=== PATIENT | female | born 1975 | race Caucasian/White ===

== ENCOUNTER 2017-04-17 16:56 | Emergency (ER) | payer OTHER ==
[2017-04-17 17:07] VITALS: BP 112/69; PULSE 78; TEMP 97.9; BMI 32.1
[2017-04-17] MEDS ORDERED: IBUPROFEN 600 MG TABLET (FP) PO ONE ×2 (17:35→17:36)
--- NOTE | 2017-04-17 17:43 | PDOC ---
History of Present Illness - General Chief Complaint: Eye Problem Stated Complaint: EYE PROBLEM Time Seen by Provider: 04/17/17 17:26 History Source: Patient Exam Limitations: No Limitations - History of Present Illness Initial Comments: 04/17/17 18:12 Patient states Thursday had an interruption and drainage of a stye to her left upper lid. States was painful, swollen in the morning and with 1 hot soak caused to open and draining thick purulent drainage. States swelling and tenderness resolved by Thursday. States yesterday had recurrent onset of same type of pain and this morning woke up with more swelling, worsened pain then previous and another noted small abscess to the left lateral aspect of her lid. Denies fever, denies trauma, denies any visual changes. Return erythromyosin ointment but has not formed any other treatments for resolution. Timing/Duration: unsure Severity: mild, moderate Associated Symptoms: reports: malaise. denies: fever/chills Past History - Travel Traveled outside of the country in the last 30 days: No Close contact w/someone who was outside of country & ill: No - Past Medical History Allergies/Adverse Reactions: Allergies Allergy/AdvReac Type Severity Reaction Status Date / Time No Known Allergies Allergy Verified 04/17/17 17:00 Home Medications: Ambulatory Orders Amox-Tr/K Cl [Augmentin 875Mg Tablet] 1 tab PO BID #14 tablet 04/17/17 Asthma: Yes - Immunization History Immunization Up to Date: Yes - Psycho/Social/Smoking Cessation Hx Anxiety: No Suicidal Ideation: No Smoking History: Never smoked Hx Alcohol Use: No Drug/Substance Use Hx: No Substance Use Type: None Review of Systems - Review of Systems Able to Perform ROS?: Yes Is the patient limited Lao proficient: Yes Constitutional: Yes: Symptoms Reported, See HPI, Malaise. No: Fever HEENTM: Yes: Symptoms Reported, See HPI, Eye Pain, Tearing. No: Blurred Vision , Nose Congestion, Mouth Swelling Respiratory: No: Symptoms reported Integumentary: Yes: Symptoms Reported, See HPI, Erythema, Lesions All Other Systems: Reviewed and Negative *Physical Exam - Vital Signs Last Vital Signs Temp Pulse Resp BP Pulse Ox 97.9 F 78 18 112/69 99 04/17/17 17:00 04/17/17 17:00 04/17/17 17:00 04/17/17 17:00 04/17/17 17:00 - Physical Exam General Appearance: Yes: Appropriately Dressed, Apparent Distress HEENT: positive: LIGIA (no or drainage, no evidence of conjunctivitis.), Normal ENT Inspection, TMs Normal, Pharynx Normal, Other (has erythema swelling and tenderness to the lateral left upper lid with a small abscess draining purulent drainage. Tenderness is periorbital) Respiratory/Chest: positive: Lungs Clear, Normal Breath Sounds Cardiovascular: positive: Regular Rate Gastrointestinal/Abdominal: positive: Soft Extremity: positive: Normal Capillary Refill Neurologic: positive: cash analyst II-XII NML intact, Fully Oriented, Alert, Normal Mood/ Affect, Normal Response, Motor Strength 01/16 Medical Decision Making - Medical Decision Making 04/17/17 18:16 Left thigh, we'll continue treating with conservative measures given a watch and wait prescription for Augmentin if facial cellulitis occurs or fevers. *DC/Admit/Observation/Transfer Diagnosis at time of Disposition: Hordeolum externum (stye) Qualifiers: Laterality: left Eyelid: upper Qualified Code(s): H00.014 - Hordeolum externum left upper eyelid - Discharge Dispostion Disposition: HOME Condition at time of disposition: Stable Admit: No - Prescriptions Prescriptions: Amox-Tr/K Cl [Augmentin 875Mg Tablet] 1 tab PO BID #14 tablet - Referrals Referrals: Jl Sigala [Primary Care Provider] - - Patient Instructions Printed Discharge Instructions: DI for Blepharitis Additional Instructions: Rest, avoid rubbing eyes Hot wet towels/soaks to I as often as possible until stye comes to ahead and starts to drain Wash hands frequently Wash hands, may use eye ointment, erythromycin for lubricant 3 times a day as needed Followup with ophthalmology or private physician as needed If swelling worsens, face becomes swollen, developed fevers, start antibiotic and follow-up with physician/manager wholesale within 24 hours, otherwise continue conservative treatment for hopeful resolution without antibiotic use - Post Discharge Activity Work/School Note: Back to Work
== END 2017-04-17 17:46 | disposition home or self-care (01) ==
LOC: JER 16:56
DX: H00.014 Hordeolum externum left upper eyelid (principal)
CPT/HCPCS: 99281-25

== ENCOUNTER 2018-06-14 18:13 | Emergency (ER) | payer OTHER ==
[2018-06-14 18:33] VITALS: BP 121/77; PULSE 77; TEMP 98.6; BMI 28.3
--- NOTE | 2018-06-14 18:33 | PDOC ---
Rapid Medical Evaluation Chief Complaint: Back Pain Time Seen by Provider: 06/14/18 18:30 Medical Evaluation: Allergies Allergy/AdvReac Type Severity Reaction Status Date / Time No Known Allergies Allergy Verified 06/14/18 18:29 I have performed a brief in-person evaluation of this patient. The patient presents with a chief complaint of: back pain x 3 days. took 1 diclofenac on the first day with little relief Pertinent physical exam findings: low back pain radiating to legs I have ordered the following: hcg The patient will proceed to the ED for further evaluation Discharge Disposition - Diagnosis Low back pain - Referrals Referrals: Micheal Alejo [Primary Care Provider] - - Patient Instructions - Post Discharge Activity
--- NOTE | 2018-06-14 18:58 | PDOC ---
History of Present Illness - General Chief Complaint: Back Pain Stated Complaint: LOW BACK PAIN Time Seen by Provider: 06/14/18 18:30 - History of Present Illness Initial Comments: 06/14/18 18:55 42-year-old female without comorbidities presents for evaluation of atraumatic onset of lower back pain 2 days. She describes her pain is achy exacerbated with activity relieved with rest and with radiation to bilateral buttocks. No loss of bowel bladder function or saddle paresthesias Past History - Past Medical History Allergies/Adverse Reactions: Allergies Allergy/AdvReac Type Severity Reaction Status Date / Time No Known Allergies Allergy Verified 06/14/18 18:29 Home Medications: Ambulatory Orders Cyclobenzaprine HCl [Flexeril 10 mg] 10 mg PO HS PRN #10 tablet 06/14/18 Methylprednisolone [Medrol Dose Kuldip] 4 mg PO ASDIR #21 tablet 06/14/18 Asthma: Yes COPD: No - Immunization History Immunization Up to Date: Yes - Suicide/Smoking/Psychosocial Hx Smoking History: Never smoked Hx Alcohol Use: No Drug/Substance Use Hx: No Substance Use Type: None Review of Systems - Review of Systems Musculoskeletal: Yes: Back Pain All Other Systems: Reviewed and Negative *Physical Exam - Vital Signs Last Vital Signs Temp Pulse Resp BP Pulse Ox 98.6 F 77 18 121/77 97 06/14/18 18:29 06/14/18 18:29 06/14/18 18:29 06/14/18 18:29 06/14/18 18:29 - Physical Exam Comments: Lumbar spine skin color and temperature are normal range of motion is decreased secondary to pain she has mild right left paralumbar musculature spasm and moderate tenderness. 5 out of 5 strength in bilateral lower extremities without gross sensorimotor deficits. Positive straight leg raise test bilaterally thighs and calves are soft and nontender. She is neurovascularly intact. 06/14/18 18:56 Medical Decision Making - Medical Decision Making Lumbar radiculopathy which I will treat with a Medrol Dosepak and Flexeril pending urine 06/14/18 18:56 *DC/Admit/Observation/Transfer Diagnosis at time of Disposition: Low back pain, Lumbar radiculopathy - Discharge Dispostion Disposition: HOME Condition at time of disposition: Stable Decision to Admit order: No - Prescriptions Prescriptions: Cyclobenzaprine HCl [Flexeril 10 mg] 10 mg PO HS PRN #10 tablet PRN Reason: Muscle Spasms Methylprednisolone [Medrol Dose Kuldip] 4 mg PO ASDIR #21 tablet - Referrals Referrals: Micheal Alejo [Primary Care Provider] - Yang Basilio MD [Staff Physician] - - Patient Instructions Printed Discharge Instructions: Low Back Pain Additional Instructions: Take the medication as directed. Please follow-up with spine surgery in 2-3 days for further evaluation and treatment options. Return to the emergency room should symptoms worsen or go unresolved. - Post Discharge Activity
[2018-06-14] MEDS ORDERED: CYCLOBENZAPRINE HCL 10 MG TABLET (FP) ONE (19:37)
[2018-06-14] MEDS ORDERED: CYCLOBENZAPRINE HCL 5 MG TABLET PO SCH (19:45)
== END 2018-06-14 19:44 | disposition home or self-care (01) ==
LOC: JERFT 18:13
DX: M54.16 Radiculopathy, lumbar region (principal)
CPT/HCPCS: 84703; 99281-25

== ENCOUNTER 2018-08-04 14:13 | Emergency (ER) | payer OTHER ==
[2018-08-04 14:19] VITALS: BP 143/67; PULSE 77; TEMP 98.4; BMI 29.1
[2018-08-04] MEDS ORDERED: RANITIDINE HCL 150 MG TABLET (FP) PO ONE (14:19)
[2018-08-04] MEDS ORDERED: diphenhydrAMINE HCL 25 MG CAPSULE (FP) PO ONE ×2 (14:19→14:35)
--- NOTE | 2018-08-04 14:19 | PDOC ---
Rapid Medical Evaluation Time Seen by Provider: 08/04/18 14:15 Medical Evaluation: Allergies Allergy/AdvReac Type Severity Reaction Status Date / Time No Known Allergies Allergy Verified 06/14/18 18:29 08/04/18 14:15 I have performed a brief in-person evaluation of this patient. The patient presents with a chief complaint of: head warmth after eating shrimp Pertinent physical exam findings: Lungs CTAB. OP without erythema or edema. No stridor. No drooling. I have ordered the following: Zantac, benadryl The patient will proceed to the ED for further evaluation. Discharge Disposition - Diagnosis Allergic reaction - Referrals - Patient Instructions - Post Discharge Activity
[2018-08-04] MEDS ORDERED: RANITIDINE HCL 150 MG TABLET (FP) ONE (14:35)
[2018-08-04] MEDS ORDERED: DEXAMETHASONE LIQUID 0.5 MG/5 ML 240 ML BULK BOTTLE PO ONE (14:37)
[2018-08-04] MEDS ORDERED: DEXAMETHASONE SOD PHOSPHATE 10 MG/1 ML VIAL ONE (14:39)
--- NOTE | 2018-08-04 14:47 | PDOC ---
History of Present Illness - General Chief Complaint: Allergic Reaction Stated Complaint: ALLERGIC REACTION Time Seen by Provider: 08/04/18 14:15 - History of Present Illness Initial Comments: 08/04/18 14:42 42-year-old female, With past medical history significant for GERD she takes Protonix, presents for evaluation after eating shrimp. She states she became itchy and her face became swollen 08/04/18 14:42 Past History - Past Medical History Allergies/Adverse Reactions: Allergies Allergy/AdvReac Type Severity Reaction Status Date / Time No Known Allergies Allergy Verified 08/04/18 14:16 Home Medications: Ambulatory Orders Pantoprazole Sodium 08/04/18 Asthma: Yes COPD: No GI Disorders: Yes (refulx) - Immunization History Immunization Up to Date: Yes - Suicide/Smoking/Psychosocial Hx Smoking History: Never smoked Have you smoked in the past 12 months: No Information on smoking cessation initiated: No Hx Alcohol Use: No Drug/Substance Use Hx: No Substance Use Type: None Review of Systems - Review of Systems HEENTM: No: Throat Swelling Respiratory: No: Shortness of Breath, Wheezing Integumentary: Yes: Pruritus, Rash *Physical Exam - Vital Signs Last Vital Signs Temp Pulse Resp BP Pulse Ox 98.4 F 77 18 143/67 100 08/04/18 14:16 08/04/18 14:16 08/04/18 14:16 08/04/18 14:16 08/04/18 14:16 - Physical Exam Comments: 08/04/18 14:44 HEAD: NC/AT EYES: Conjuntiva clear Ears: Canals and TM's normal NOSE: No d/c THROAT: Moist mucous membrances, oral pharanx clear, uvula midline NECK: Supple without adenopathy CARDIAC: S1 S2 LUNGS: CTA Full and Equal breath sounds ABDOMEN: Soft NT ND MS: Full ROM in all joints without edema NEUROLOGIC: No gross sensory or motor deficits, NVID SKIN: Normal color and temperature mild flushness and redness about the face and cheeks ED Treatment Course - Medications Given in the ED: ED Medications Discontinued Medications Generic Name Dose Route Start Last Admin Trade Name Freq PRN Reason Stop Dose Admin Dexamethasone 10 mg 08/04/18 14:37 08/04/18 14:41 Decadron Liquid - PO 08/04/18 14:38 1 ml ONCE ONE Administration Diphenhydramine HCl 50 mg 08/04/18 14:19 08/04/18 14:38 Benadryl - PO 08/04/18 14:20 50 mg ONCE ONE Administration Ranitidine HCl 150 mg 08/04/18 14:19 08/04/18 14:38 Zantac - PO 08/04/18 14:20 150 mg ONCE ONE Administration *DC/Admit/Observation/Transfer Diagnosis at time of Disposition: Allergic reaction - Discharge Dispostion Disposition: HOME Condition at time of disposition: Improved Decision to Admit order: No - Referrals Referrals: Micheal Alejo [Primary Care Provider] - - Patient Instructions Printed Discharge Instructions: DI for Eye Allergic Reaction Additional Instructions: You are given a dose of steroids today in the emergency room. Please follow-up with your primary care physician in one to 2 days for further evaluation and treatment options. He did not require any further steroids. You may need Benadryl as directed for itching should itching continue please take the Benadryl as directed. Return to the emergency room should symptoms worsen or go unresolved. - Post Discharge Activity
== END 2018-08-04 15:51 | disposition home or self-care (01) ==
LOC: JERFT 14:13
DX: T78.1XXA Other adverse food reactions, not elsewhere classified, initial encounter (principal); R21 Rash and other nonspecific skin eruption; Z91.013 Allergy to seafood
CPT/HCPCS: 99281-25